=== PATIENT | male | born 1970 | race Caucasian/White ===

== ENCOUNTER 2024-05-26 17:15 | Emergency (ER) | payer BC, SELFPAY ==
[2024-05-26 17:21] VITALS: BP 140/88; PULSE 116; RESP 12; TEMP 37; O2SAT 100
[2024-05-26] MEDS: Acetaminophen 500 MG TAB (18:50)
[2024-05-26] MEDS: Ibuprofen 600 MG TAB (18:51)
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
[2024-05-26] MEDS: oxyCODONE 5 MG TAB PO (19:33)
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
[2024-05-26 21:08] VITALS: BP 150/94; PULSE 85; RESP 20; O2SAT 97
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
== END 2024-05-26 21:08 | disposition home or self-care (01) ==
PROVIDERS: Emergency Provider Physician Assistant
DX: S62.616A Displaced fracture of proximal phalanx of right little finger, initial encounter for closed fracture (principal); V18.0XXA Pedal cycle driver injured in noncollision transport accident in nontraffic accident, initial encounter
CPT/HCPCS: 26720; 99284; 73140; 99283